=== PATIENT | female | born 1955 | race Caucasian/White ===

== ENCOUNTER → 2022-09-14 | Outpatient (REF) | payer MEDICARE ==
[~2022-09-14] MED LIST: ACET500C; ACET65TA; BACT800T; COLA100C2; DILA2TAB; KEFL500C; LYRI150C; LYRI150C OR; LYRI75CA; NEUR400C OR; ONDA-1; OXYC20TA15; PERC5TAB8 PO; PREG100CA; RYZOLT; SOMA350T; SOMA350T OR; TIZA4TAB OR; TRAM50TA2; TRAM50TA2 OR; ULTR300T; VICO5TAB; VICODIN; VICODINES TAB; VOLT1GEL; ZANA4CAP OR; ZANT150T OR
== END ==
LOC: M LAB REF 16:24
PROVIDERS: ATTEND Student in an Organized Health Care Education/Training Program
DX: L02.512 Cutaneous abscess of left hand (principal)